=== PATIENT | male | born 1970 | race Caucasian/White ===

== ENCOUNTER 2017-03-18 11:04 | Inpatient (IN) | payer BC, OTHER ==
[2017-03-18] MEDS ORDERED: SODIUM CHLORIDE 0.9% 2,000 ML IV ONE (11:27)
[2017-03-18] MEDS ORDERED: FAMOTIDINE 20 MG/2 ML VIAL IV STA (11:27)
[2017-03-18] MEDS ORDERED: ONDANSETRON 4 MG/2 ML VIAL IVP STA (11:29)
--- NOTE | 2017-03-18 11:35 | ED ---
General Adult HPI - General Chief complaint: Recheck/Abnormal Lab/Rx Stated complaint: Sent by clai is high Time Seen by Provider: 03/18/17 11:17 Source: patient, RN notes reviewed Mode of arrival: ambulatory Limitations: no limitations - History of Present Illness Initial comments: This a 46-year-old male presents emergency Department from primary care physician's office for hyperglycemia, abdominal pain. Patient states for the last 6 days he's had epigastric pain, nausea vomiting. Patient states that he feels that he has sharp pain but also burning sensation in his epigastric. Patient denies any chest pain or shortness breath. Patient denies fever, chills , diarrhea. Patient had increased thirst, nation. Patient states that he does not take any prescription medications. He has no history of diabetes. Patient had A1c's office which was 14 and he had ketones and glucose in his urine. Patient EKG with no acute changes. - Related Data Home Medications Medication Instructions Recorded Confirmed Multivitamins, Thera [Multivitamin 1 tab PO DAILY 03/18/17 03/18/17 (formulary)] Naproxen Sodium [Aleve] 440 mg PO BID 03/18/17 03/18/17 Allergies Allergy/AdvReac Type Severity Reaction Status Date / Time No Known Allergies Allergy Verified 03/18/17 11:48 Review of Systems ROS Statement: Those systems with pertinent positive or pertinent negative responses have been documented in the HPI. ROS Other: All systems not noted in ROS Statement are negative. Past Medical History Past Medical History: No Reported History History of Any Multi-Drug Resistant Organisms: None Reported Past Surgical History: Orthopedic Surgery Additional Past Surgical History / Comment(s): neck Past Psychological History: No Psychological Hx Reported Smoking Status: Current every day smoker Past Alcohol Use History: None Reported Past Drug Use History: None Reported General Exam Limitations: no limitations General appearance: alert, in no apparent distress ENT exam: Present: mucous membranes moist. Absent: normal exam, normal oropharynx (Edentulous) Neck exam: Present: normal inspection, full ROM. Absent: tenderness, meningismus, lymphadenopathy Respiratory exam: Present: normal lung sounds bilaterally. Absent: respiratory distress, wheezes, rales, rhonchi, stridor Cardiovascular Exam: Present: normal rhythm, tachycardia, normal heart sounds. Absent: systolic murmur, diastolic murmur, rubs, gallop, clicks GI/Abdominal exam: Present: soft, tenderness (Minimal epigastric), normal bowel sounds. Absent: distended, guarding, rebound, rigid Back exam: Absent: CVA tenderness (R), CVA tenderness (L) Neurological exam: Present: alert, oriented X3, CN II-XII intact Course Vital Signs 03/18/17 03/18/17 11:11 12:16 Temperature 97.6 F 98.5 F Pulse Rate 111 H 101 H Respiratory 24 18 Rate Blood Pressure 144/88 154/92 O2 Sat by Pulse 98 96 Oximetry Medical Decision Making - Lab Data Result diagrams: 03/18/17 11:29 03/18/17 11:29 Lab Results 03/18/17 03/18/17 03/18/17 Range/Units 11:29 11:29 11:43 WBC 19.9 H (3.8-10.6) k/uL RBC 5.28 (4.30-5.90) m/uL Hgb 16.1 (13.0-17.5) gm/dL Hct 50.7 (39.0-53.0) % MCV 95.9 (80.0-100.0) fL MCH 30.4 (25.0-35.0) pg MCHC 31.7 (31.0-37.0) g/dL RDW 13.1 (11.5-15.5) % Plt Count 259 (150-450) k/uL Neutrophils % 86 % Lymphocytes % 8 % Monocytes % 4 % Eosinophils % 1 % Basophils % 0 % Neutrophils # 17.1 H (1.3-7.7) k/uL Lymphocytes # 1.6 (1.0-4.8) k/uL Monocytes # 0.8 (0-1.0) k/uL Eosinophils # 0.1 (0-0.7) k/uL Basophils # 0.1 (0-0.2) k/uL Sodium 124 L (137-145) mmol/L Potassium 4.6 (3.5-5.1) mmol/L Chloride 85 L (98-107) mmol/L Carbon Dioxide 14 L (22-30) mmol/L Anion Gap 25 mmol/L BUN 29 H (9-20) mg/dL Creatinine 1.08 (0.66-1.25) mg/dL Est GFR (MDRD) Af Amer >60 (>60 ml/min/1.73 sqM) Est GFR (MDRD) Non-Af >60 (>60 ml/min/1.73 sqM) Glucose 1098 H* (74-99) mg/dL POC Glucose (mg/dL) >600 H (75-99) mg/dL POC Glu Spanish Language Lecturer ID Kirsty Rice Calcium 8.8 (8.4-10.2) mg/dL Total Bilirubin 0.9 (0.2-1.3) mg/dL AST 23 (17-59) U/L ALT 89 H (21-72) U/L Alkaline Phosphatase 150 H (38-126) U/L Total Protein 7.0 (6.3-8.2) g/dL Albumin 4.5 (3.5-5.0) g/dL Amylase 53 (30-110) U/L Lipase 243 (23-300) U/L Urine Color Urine Appearance (Clear) Urine pH (5.0-8.0) Ur Specific Staley (1.001-1.035) Urine Protein (Negative) Urine Glucose (UA) (Negative) Urine Blood (Negative) Urine Nitrite (Negative) Urine Bilirubin (Negative) Urine Urobilinogen (<2.0) mg/dL Ur Leukocyte Esterase (Negative) 03/18/17 Range/Units 11:57 WBC (3.8-10.6) k/uL RBC (4.30-5.90) m/uL Hgb (13.0-17.5) gm/dL Hct (39.0-53.0) % MCV (80.0-100.0) fL MCH (25.0-35.0) pg MCHC (31.0-37.0) g/dL RDW (11.5-15.5) % Plt Count (150-450) k/uL Neutrophils % % Lymphocytes % % Monocytes % % Eosinophils % % Basophils % % Neutrophils # (1.3-7.7) k/uL Lymphocytes # (1.0-4.8) k/uL Monocytes # (0-1.0) k/uL Eosinophils # (0-0.7) k/uL Basophils # (0-0.2) k/uL Sodium (137-145) mmol/L Potassium (3.5-5.1) mmol/L Chloride (98-107) mmol/L Carbon Dioxide (22-30) mmol/L Anion Gap mmol/L BUN (9-20) mg/dL Creatinine (0.66-1.25) mg/dL Est GFR (MDRD) Af Amer (>60 ml/min/1.73 sqM) Est GFR (MDRD) Non-Af (>60 ml/min/1.73 sqM) Glucose (74-99) mg/dL POC Glucose (mg/dL) (75-99) mg/dL POC Glu Spanish Language Lecturer ID Calcium (8.4-10.2) mg/dL Total Bilirubin (0.2-1.3) mg/dL AST (17-59) U/L ALT (21-72) U/L Alkaline Phosphatase (38-126) U/L Total Protein (6.3-8.2) g/dL Albumin (3.5-5.0) g/dL Amylase (30-110) U/L Lipase (23-300) U/L Urine Color Colorless Urine Appearance Clear (Clear) Urine pH 5.0 (5.0-8.0) Ur Specific Staley 1.022 (1.001-1.035) Urine Protein Negative (Negative) Urine Glucose (UA) 4+ H (Negative) Urine Blood Negative (Negative) Urine Nitrite Negative (Negative) Urine Bilirubin Negative (Negative) Urine Urobilinogen <2.0 (<2.0) mg/dL Ur Leukocyte Esterase Negative (Negative) Disposition Clinical Impression: DKA (diabetic ketoacidoses), Diabetes mellitus, new onset Disposition: ADMITTED IP TO THIS [facility] Condition: Fair
[2017-03-18 11:39] LABS: Basophils # (A) 0.1 k/uL (0-0.2); Basophils % (A) 0 %; CH 30.4; CHCM 31.9; Eosinophils # (A) 0.1 k/uL (0-0.7); Eosinophils % (A) 1 %; HCT 50.7 % (39.0-53.0); HDW 2.65; HGB 16.1 gm/dL (13.0-17.5); Luc # (Auto) 0.17; Luc % (Auto) 1; Lymphocytes # (A) 1.6 k/uL (1.0-4.8); Lymphocytes % (A) 8 %; MCH 30.4 pg (25.0-35.0); MCHC 31.7 g/dL (31.0-37.0); MCV 95.9 fL (80.0-100.0); Mean Platelet Volume 9.3; Monocytes # (A) 0.8 k/uL (0-1.0); Monocytes % (A) 4 %; Neutrophils # (A) 17.1 k/uL (1.3-7.7); Neutrophils % (A) 86 %; RBC 5.28 m/uL (4.30-5.90); RDW 13.1 % (11.5-15.5); WBC 19.9 k/uL (3.8-10.6); WBC (Perox) 18.76
[2017-03-18 11:45] LABS: Glucose,Whole Blood >600 mg/dL (75-99)
[2017-03-18 12:00] LABS: ALT 89 U/L (21-72); AST 23 U/L (17-59); Alkaline Phosphatase 150 U/L (38-126); Amylase 53 U/L (30-110); Anion Gap 25 mmol/L; Blood Urea Nitrogen 29 mg/dL (9-20); Calcium 8.8 mg/dL (8.4-10.2); Carbon Dioxide 14 mmol/L (22-30); Chloride 85 mmol/L (98-107); Non-African American GFR(MDRD) >60 (>60 ml/min/1.73 sqM); Potassium 4.6 mmol/L (3.5-5.1); Sodium 124 mmol/L (137-145); Total Bilirubin 0.9 mg/dL (0.2-1.3)
[2017-03-18 12:06] LABS: Appearance,Urine Clear (Clear); Bilirubin,Urine Negative (Negative); Glucose,Urine (UA) 4+ (Negative); Leukocyte Esterase,Urine Negative (Negative); Nitrite,Urine Negative (Negative); Protein,Urine Negative (Negative); Specific Gravity,Urine 1.022 (1.001-1.035); UA Billing (MACRO vs. MICRO) CHEM; Urobilinogen,Urine <2.0 mg/dL (<2.0)
[2017-03-18 12:10] LABS: Glucose 1098 mg/dL (74-99)
[2017-03-18] MEDS ORDERED: MAG HYDROX/AL HYDROX/SIMETH 30 ML, HYOSCYAMINE ELIXIR 10 ML, CIMETIDINE HCL 300 MG PO STA ×3 (12:26)
[2017-03-18] MEDS: INSULIN REGULAR 100 UNIT in SODIUM CHLORIDE 0.9% 100 ML IV SCH ×2 (12:48→23:37)
[2017-03-18 12:53] LABS: Ketones,Urine 2+ (Negative)
[2017-03-18] MEDS: SODIUM CHLORIDE 0.9% 1,000 ML IV SCH ×2 (12:54→20:42)
[2017-03-18 13:50] LABS: Glucose,Whole Blood 593 mg/dL (75-99)
[2017-03-18] MEDS: ONDANSETRON 4 MG/2 ML VIAL IVP PRN ×2 (14:26→19:05)
[2017-03-18] MEDS ORDERED: KETOROLAC 30 MG/ML 1 ML VIAL IVP STA (14:37)
[2017-03-18 14:49] LABS: Glucose,Whole Blood 484 mg/dL (75-99)
[2017-03-18 15:56] LABS: Glucose,Whole Blood 422 mg/dL (75-99)
[2017-03-18 15:57] LABS: Anion Gap 15 mmol/L; Blood Urea Nitrogen 22 mg/dL (9-20); Carbon Dioxide 18 mmol/L (22-30); Chloride 102 mmol/L (98-107); Non-African American GFR(MDRD) >60 (>60 ml/min/1.73 sqM); Phosphorous 3.8 mg/dL (2.5-4.5); Potassium 3.4 mmol/L (3.5-5.1); Sodium 135 mmol/L (137-145)
[2017-03-18 16:07] LABS: Glucose 460 mg/dL (74-99)
[2017-03-18] MEDS ORDERED: POTASSIUM CHLORIDE ER 20 MEQ TAB.ER PO STA (16:39)
[2017-03-18] MEDS ORDERED: NICOTINE 21MG/24HR PATCH TRANSDERM STA (16:39)
[2017-03-18] MEDS ORDERED: NAPROXEN 250 MG TAB PO PRN (16:40)
[2017-03-18 17:17] LABS: Glucose,Whole Blood 302 mg/dL (75-99)
[2017-03-18 18:25] LABS: Glucose,Whole Blood 240 mg/dL (75-99)
[2017-03-18] MEDS: D5-0.45% NACL WITH KCL 20MEQ/L 1,000 ML IV SCH ×2 (19:02→23:45)
[2017-03-18 19:18] LABS: Glucose,Whole Blood 234 mg/dL (75-99)
[2017-03-18 20:07] LABS: Glucose,Whole Blood 317 mg/dL (75-99)
[2017-03-18 20:08] LABS: Anion Gap 11 mmol/L; Blood Urea Nitrogen 18 mg/dL (9-20); Carbon Dioxide 19 mmol/L (22-30); Chloride 106 mmol/L (98-107); Glucose 297 mg/dL (74-99); Non-African American GFR(MDRD) >60 (>60 ml/min/1.73 sqM); Potassium 3.5 mmol/L (3.5-5.1); Sodium 136 mmol/L (137-145)
[2017-03-18] MEDS: ENOXAPARIN 40 MG/0.4 ML SYRINGE SQ SCH (20:46)
[2017-03-18] MEDS: CALCIUM CARBONATE LIQUID 500 MG/5 ML CUP PO SCH (20:46)
[2017-03-18] MEDS: PANTOPRAZOLE 40 MG TABLET PO SCH (20:46)
[2017-03-18] MEDS: MELATONIN 3 MG TABLET PO SCH (20:47)
[2017-03-18] MEDS ORDERED: LISINOPRIL-HCTZ 10-12.5 MG 1 EACH TAB PO SCH (21:00)
[2017-03-18 21:08] LABS: Glucose,Whole Blood 304 mg/dL (75-99)
[2017-03-18 22:06] LABS: Glucose,Whole Blood 313 mg/dL (75-99)
[2017-03-18 23:11] LABS: Glucose,Whole Blood 281 mg/dL (75-99)
[2017-03-19 00:05] LABS: Glucose,Whole Blood 267 mg/dL (75-99)
[2017-03-19 01:01] LABS: Glucose,Whole Blood 243 mg/dL (75-99)
[2017-03-19] MEDS: ONDANSETRON 4 MG/2 ML VIAL IVP PRN ×3 (01:15→16:34)
[2017-03-19 02:04] LABS: Glucose,Whole Blood 194 mg/dL (75-99)
[2017-03-19 03:06] LABS: Glucose,Whole Blood 160 mg/dL (75-99)
[2017-03-19 04:11] LABS: Glucose,Whole Blood 112 mg/dL (75-99)
[2017-03-19 05:00] LABS: Glucose,Whole Blood 93 mg/dL (75-99)
[2017-03-19 06:07] LABS: Glucose,Whole Blood 144 mg/dL (75-99)
[2017-03-19 06:11] LABS: ALT 56 U/L (21-72); AST 17 U/L (17-59); Alkaline Phosphatase 86 U/L (38-126); Anion Gap 9 mmol/L; Blood Urea Nitrogen 21 mg/dL (9-20); Calcium 8.5 mg/dL (8.4-10.2); Carbon Dioxide 19 mmol/L (22-30); Chloride 108 mmol/L (98-107); Cholesterol 188 mg/dL (<200); Glucose 131 mg/dL (74-99); HDL Cholesterol 26 mg/dL (40-60); Non-African American GFR(MDRD) 53 (>60 ml/min/1.73 sqM); Potassium 3.4 mmol/L (3.5-5.1); Sodium 136 mmol/L (137-145); Total Bilirubin 0.5 mg/dL (0.2-1.3); Total Protein 5.3 g/dL (6.3-8.2); Triglycerides 439 mg/dL (<150)
[2017-03-19 06:14] LABS: Basophils % (A) 0 %; CH 31.6; Eosinophils # (A) 0.2 k/uL (0-0.7); Eosinophils % (A) 2 %; HCT 36.2 % (39.0-53.0); Luc # (Auto) 0.18; Luc % (Auto) 2; Lymphocytes # (A) 1.2 k/uL (1.0-4.8); Lymphocytes % (A) 12 %; MCH 30.4 pg (25.0-35.0); MCHC 34.4 g/dL (31.0-37.0); Mean Platelet Volume 8.5; Monocytes # (A) 0.6 k/uL (0-1.0); Monocytes % (A) 6 %; Neutrophils # (A) 8.2 k/uL (1.3-7.7); Neutrophils % (A) 79 %; RDW 12.9 % (11.5-15.5); WBC 10.4 k/uL (3.8-10.6); WBC (Perox) 9.56
[2017-03-19 06:17] LABS: HGB 12.4 gm/dL (13.0-17.5); MCV 88.2 fL (80.0-100.0)
[2017-03-19] MEDS ORDERED: Potassium Replacement Protocol 1 EACH MISC MISCELLANE PRN (06:49)
[2017-03-19] MEDS ORDERED: INSULIN NPH 300 UNIT/3 ML VIAL SQ ONE (06:52)
[2017-03-19 07:01] LABS: Glucose,Whole Blood 220 mg/dL (75-99)
[2017-03-19] MEDS: D5-0.45% NACL WITH KCL 20MEQ/L 1,000 ML IV SCH (07:01)
--- NOTE | 2017-03-19 07:06 | HP ---
DATE OF ADMISSION: 03/18/2017 PRESENTING COMPLAINT: Weak, tired. HISTORY OF PRESENTING COMPLAINT: This is a pleasant 46-year-old patient of Dr. Ndiaye. The patient had history of one episode of grand mal seizure several years ago, history of multiple closed head injuries. Patient has trouble sleeping, also gets a lot of heartburn. The patient has been taking a lot of naproxen for chronic neck pain presented with increased frequency of urination, polydipsia, polyuria, found to have a sugar greater than 1000 in the ER and positive serum acetone, started on insulin drip. No prior history of diabetes. The patient is a smoker. Feels weak, tired, rundown, exhausted. REVIEW OF SYSTEMS: CONSTITUTIONAL: Weak and tired. HEENT: None. RESPIRATORY: None. CARDIOVASCULAR: None. GASTROINTESTINAL: Heartburn and epigastric discomfort. GENITOURINARY: None. MUSCULOSKELETAL: Pain in the neck and lower back. DERMATOLOGICAL: None. HEMATOLOGICAL: None. LYMPHATIC: None. PSYCHIATRY: None. NEUROLOGICAL: None. PAST HISTORY: Grand mal seizure x1, closed head injury x3, chronic insomnia, chronic neck pain, some trouble focusing through the right eye. PAST SURGICAL HISTORY: Cervical plate, left hand 3 partially amputated fingers, left knee arthroscopic surgery due to crush injury, right rotator cuff repair. SOCIAL HISTORY: for 22 years. Smokes a pack a day for over 30 years. 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 Drinks alcohol rarely. FAMILY HISTORY: Both maternal grandparents had diabetes. HOME MEDICATIONS: 1. Naproxen 440 mg p.o. b.i.d. 2. Multivitamin 1 tablet p.o. daily. ALLERGIES: None. On examination, temperature 97.4, pulse 110, respiration 16, blood pressure 155/91, pulse ox 99% on room air. GENERAL APPEARANCE: Average built, lying in bed, tired appearing. EYES: Pupils equal. Conjunctivae normal. HEENT: Oral cavity dry mucous membrane. NECK: JVD not raised. Mass not palpable. RESPIRATORY: Effort normal. Lungs are clear. CARDIOVASCULAR: First and second sounds normal. No edema. ABDOMEN: Soft, nontender. Liver and spleen not palpable. LYMPHATIC: No lymph nodes palpable in the neck or axillae. PSYCHIATRY: Alert and oriented x3. Mood and affect normal. NEUROLOGICAL: Pupils equal. Cranial nerves grossly intact. Power and sensation grossly intact. INVESTIGATIONS: White count 19.9, hemoglobin 16.1, platelets 259. Sodium 124, potassium 4.6. BUN 29, creatinine 1.08. Glucose 1098. Serum acetone positive. UA positive for glucose 4+ and ketones 2+. ASSESSMENT: 1. New-onset diabetic ketoacidosis. 2. Hyponatremia, likely pseudo from high sugar. 3. Leukocytosis because of diabetic ketoacidosis. 4. Chronic nicotine dependence. Patient is a smoker. 5. Acute and chronic gastritis from the use of NSAIDs. 6. 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 7. Chronic insomnia, multifactorial. 8. Essential hypertension, uncontrolled on presentation. PLAN: At this point, patient was put on insulin drip. Will check patient's glycosylated hemoglobin. For risk factor modification, I told the patient not smoke. Given a nicotine patch. We will check a lipid profile and for the high blood pressure start the patient on lisinopril hydrochlorothiazide. Will give Lovenox for DVT prophylaxis and IV fluids. Repeat labs in the morning. Patient was counseled extensively. Patient states he does not have money for prescriptions and will try to use Humulin 70/30, which is more financially reasonable.
[2017-03-19] MEDS: PANTOPRAZOLE 40 MG TABLET PO SCH (08:10)
[2017-03-19] MEDS: POTASSIUM CHLORIDE ER 20 MEQ TAB.ER PO SCH ×2 (08:10→09:31)
[2017-03-19] MEDS: CALCIUM CARBONATE LIQUID 500 MG/5 ML CUP PO SCH ×3 (08:10→20:45)
[2017-03-19] MEDS: INSULIN LISPRO (humaLOG) 300 UNIT/3 ML VIAL SQ SCH ×2 (08:35→12:32)
[2017-03-19] MEDS ORDERED: PANTOPRAZOLE 40 MG/10 ML VIAL IV SCH (09:00)
[2017-03-19] MEDS: ENOXAPARIN 40 MG/0.4 ML SYRINGE SQ SCH (09:31)
[2017-03-19] MEDS: NICOTINE 21MG/24HR PATCH TRANSDERM SCH (09:31)
[2017-03-19] MEDS ORDERED: ALPRAZolam 0.25 MG TAB PO STA (10:04)
[2017-03-19 11:40] LABS: Glucose,Whole Blood 457 mg/dL (75-99)
[2017-03-19 12:23] LABS: Hemoglobin A1C 14.1 % (4.2-6.1)
--- NOTE | 2017-03-19 12:31 | PN ---
DATE OF SERVICE: 03/19/2017 PRESENTING COMPLAINT: Weak and tired. INTERVAL HISTORY: This is a 46-year-old gentleman who presented to the emergency department on 03/18/2017 with increased frequency of urination, polydipsia, polyuria and was found to have blood glucose greater than 1000 IN the emergency department. Additionally, he had positive serum acetone, started on an insulin drip at that time. No history of diabetes. Patient is a current smoker. Today patient feels overwhelmed, tired, weak, but not to the degree that he felt those feelings yesterday. Review of systems done for constitutional, cardiovascular, GI, pulmonary with relevant findings as above. CURRENT MEDICATIONS: Lovenox, Lantus, Humalog, melatonin, nicotine patch, Protonix. PHYSICAL EXAM: VITAL SIGNS: Temperature 98.0, pulse 92, respirations 17, blood pressure 92/53, oxygen saturation 98% on room air GENERAL APPEARANCE: Patient is lying in bed, states he feels stressed out, overwhelmed due to all the new information he has received over the past 12 hours. Concerns regarding use of insulin. Patient states he has a fear of needles. Reassurance provided from provider regarding these concerns. EYES: Pupils equal. Conjunctivae normal. NECK: JVD not raised. Mass not palpable. Lung sounds clear to auscultation throughout. RESPIRATORY: Effort normal. Unlabored. CARDIOVASCULAR: S1, S2 normal. No edema noted. ABDOMEN: Soft, nontender. Liver and spleen not palpable. PSYCHIATRIC: Alert and oriented x3. Mood and affect are normal. INVESTIGATIONS: Hemoglobin 12.4, white blood cell count 10.4, platelets 155. Sodium 136, potassium 3.4, chloride 108, BUN 21, creatinine 1.43. Albumin 3.1. Triglycerides 439. ASSESSMENT: 1. New onset diabetic ketoacidosis. 2. Hyponatremia likely pseudo from elevated sugars. 3. Leukocytosis because of diabetic ketoacidosis. 4. Chronic nicotine dependence. Patient is a current smoker. 5. Acute on chronic gastritis from the use of NSAIDs. 6. 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 7. Chronic insomnia, multifactorial. 8. Essential hypertension, uncontrolled on presentation. PLAN: Insulin drip has been converted to subcutaneous insulin this morning. Will continue to check patient's lab values. Also will follow up on patient's glycosylated hemoglobin. Patient was again counseled on cigarette smoking and the need for him to quit. Patient is provided a nicotine patch. Lisinopril hydrochlorothiazide was initiated on 03/18/2017; however, patient's blood pressure dipped down into the 60s overnight; therefore will re-evaluate antihypertensive that are more amenable to patient's current conditions. Lovenox for DVT prophylaxis. IV fluids continue to be given. Case management and diabetes education have been in to see the patient and are going to provide education and counseling to patient and patient's his to ensure compliance.
[2017-03-19] MEDS ORDERED: INSULIN LISPRO (humaLOG) 300 UNIT/3 ML VIAL SQ SCH (13:00)
[2017-03-19] MEDS ORDERED: INSULIN REGULAR 100 UNIT in SODIUM CHLORIDE 0.9% 100 ML IV SCH (14:15)
[2017-03-19 15:35] LABS: Glucose,Whole Blood 350 mg/dL (75-99)
--- NOTE | 2017-03-19 15:54 | XR ---
EXAMINATION TYPE: XR facial bones 3 views complete, XR mandible 5 views complete DATE OF EXAM: 03/19/2017 3:17 PM COMPARISON: NONE HISTORY: 46-year-old male evaluated for tooth abscess FINDINGS: Nasal septum appears midline. Orbits appear relatively symmetric. No significant opacification seen w ithin the paranasal sinuses. There are large dental caries that involve left-sided mandibular and maxillary molars/premolars. A fe w of the teeth are markedly eroded with only the roots remaining. There may be periapical lucency/abscess involving 2 of these mandibular teeth, refer to the lateral v iew of the mandible. IMPRESSION: Large dental caries involving left-sided maxillary and mandibular molars and premolars. 2 of the lamont ibular teeth have findings suggesting periapical lucency/abscesses. Consider orthopantogram to better delineate these teeth as clinically indicated.
[2017-03-19] MEDS: CLINDAMYCIN 300 MG in DEXTROSE 5% IN WATER 50 ML IVPB SCH ×4 (16:31→20:45)
[2017-03-19 17:35] LABS: Glucose,Whole Blood 216 mg/dL (75-99)
[2017-03-19 19:09] LABS: Glucose,Whole Blood 331 mg/dL (75-99)
[2017-03-19 20:19] LABS: Glucose,Whole Blood 310 mg/dL (75-99)
[2017-03-19] MEDS: INSULIN NPH/REG INSULIN 70/30 300 UNIT/3 ML VIAL SQ SCH (20:27)
[2017-03-19] MEDS: MELATONIN 3 MG TABLET PO SCH (20:45)
[2017-03-19] MEDS: ATORVASTATIN 40 MG TAB PO SCH (20:45)
[2017-03-19] MEDS: ACETAMINOPHEN TAB 325 MG TAB PO PRN (20:45)
[2017-03-19] MEDS ORDERED: INSULIN GLARGINE 100 UNIT/ML 10 ML VIAL SQ SCH (21:00)
[2017-03-19 21:34] LABS: Glucose,Whole Blood 301 mg/dL (75-99)
--- NOTE | 2017-03-19 22:29 | PN ---
DATE OF SERVICE: 03/19/2017 ATTENDING NOTE: This patient was seen and examined by me today. I agree with the note by my nurse practitioner Ms. Escoto. Any changes as below. This patient was admitted with DKA. Sugars are still running high this morning. I told him to continue with IV insulin drip. Patient also noticed some swelling of the left side of the face which has been coming on slowly. He thinks this is an abscess. Because of insurance reasons, he had not gone to see a doctor. Patient's is at the bedside. Review of systems done for constitutional, cardiovascular, GI, pulmonary; relevant findings as above. On examination, temperature 97.1, pulse 93, respiration 18, blood pressure 110/55. There is swelling over the left maxilla, some tenderness. INVESTIGATIONS: Accu-Cheks are noted. White count 10.4. Potassium 3.4. BUN 21, creatinine 1.43. Patient's triglycerides are 439. ASSESSMENT: 1. Diabetic ketoacidosis, slow to respond. 2. Hyponatremia, likely pseudo from elevated sugars, improving. 3. Chronic nicotine dependence. Patient is a current smoker. 4. Acute on chronic gastritis from NSAIDs. 5. Chronic insomnia, multifactorial. 6. Essential hypertension, uncontrolled on presentation. 7. Strongly suspect upper tooth caries with abscess, maybe involving the maxillary sinus. PLAN: Patient will continue with insulin drip for right now. This evening we will change the patient to insulin 70/30, starting with 16 units with breakfast and supper and 6 to 8 units with lunch. Patient will be also put on IV clindamycin. Will get an x-ray of the facial bones and the maxilla and consult Orofacial Maxillary bindery leadperson. Talked to the patient and his at the bedside. Counseled yet again against smoking. Repeat electrolytes in the morning.
[2017-03-20] MEDS: ONDANSETRON 4 MG/2 ML VIAL IVP PRN ×3 (00:06→17:25)
[2017-03-20] MEDS: CLINDAMYCIN 300 MG in DEXTROSE 5% IN WATER 50 ML IVPB SCH ×6 (03:48→15:32)
[2017-03-20 06:04] LABS: Glucose,Whole Blood 242 mg/dL (75-99)
[2017-03-20 06:15] LABS: Basophils # (A) 0.1 k/uL (0-0.2); Basophils % (A) 1 %; CH 30.7; CHCM 34.5; Eosinophils # (A) 0.2 k/uL (0-0.7); Eosinophils % (A) 2 %; HCT 38.3 % (39.0-53.0); HDW 2.57; HGB 13.1 gm/dL (13.0-17.5); Luc # (Auto) 0.25; Luc % (Auto) 2; Lymphocytes % (A) 19 %; MCH 30.4 pg (25.0-35.0); MCHC 34.2 g/dL (31.0-37.0); MCV 89.1 fL (80.0-100.0); Mean Platelet Volume 8.6; Monocytes # (A) 0.6 k/uL (0-1.0); Monocytes % (A) 6 %; Neutrophils # (A) 7.6 k/uL (1.3-7.7); Neutrophils % (A) 71 %; WBC 10.7 k/uL (3.8-10.6); WBC (Perox) 11.67
[2017-03-20 06:29] LABS: Anion Gap 13 mmol/L; Blood Urea Nitrogen 13 mg/dL (9-20); Calcium 8.8 mg/dL (8.4-10.2); Carbon Dioxide 22 mmol/L (22-30); Chloride 103 mmol/L (98-107); Glucose 267 mg/dL (74-99); Non-African American GFR(MDRD) >60 (>60 ml/min/1.73 sqM); Potassium 3.7 mmol/L (3.5-5.1); Sodium 138 mmol/L (137-145)
[2017-03-20] MEDS: ACETAMINOPHEN TAB 325 MG TAB PO PRN (06:50)
[2017-03-20] MEDS: PANTOPRAZOLE 40 MG TABLET PO SCH (06:50)
[2017-03-20] MEDS: CALCIUM CARBONATE LIQUID 500 MG/5 ML CUP PO SCH ×3 (06:50→17:20)
[2017-03-20] MEDS: SODIUM CHLORIDE 0.9% 1,000 ML IV SCH ×3 (06:52→15:34)
[2017-03-20] MEDS: INSULIN NPH/REG INSULIN 70/30 300 UNIT/3 ML VIAL SQ SCH (07:15)
[2017-03-20] MEDS: ENOXAPARIN 40 MG/0.4 ML SYRINGE SQ SCH (09:35)
[2017-03-20] MEDS: ATORVASTATIN 40 MG TAB PO SCH (09:35)
[2017-03-20] MEDS: NICOTINE 21MG/24HR PATCH TRANSDERM SCH (09:38)
[2017-03-20] MEDS: HYDROcodone/APAP 5-325MG 1 EACH TAB PO PRN ×2 (09:41→17:39)
--- NOTE | 2017-03-20 10:29 | PN ---
DATE OF SERVICE: 03/20/2017 PRESENTING COMPLAINT: Weak and tired. INTERVAL HISTORY: This 46-year-old gentleman who presented to the emergency department on 03/18/2017 with increased frequency of urination, polydipsia, polyuria, was found to have a blood glucose greater than 1000 in the emergency department. Additionally he had positive serum acetone started on an insulin drip at that time. No history of diabetes. Current smoker. Today patient feels some better. Continues to feel overwhelmed. Complaining of left-sided cheek and jaw and tooth pain Review of systems done for constitutional, cardiovascular, GI, pulmonary with relevant findings as above. CURRENT MEDICATIONS: Lovenox, Lantus, Humalog, melatonin, nicotine patch, Protonix. PHYSICAL EXAM: VITAL SIGNS: Temperature 96.6, pulse 96, respirations 18, blood pressure 128/63, oxygen saturation 96% on room air. GENERAL APPEARANCE: Patient is lying in bed, complaints regarding left jaw and tooth pain. Continues to feel overwhelmed regarding all new information for current condition. Continues to have concerns regarding use of insulin. Reassurance once again provided. EYES: Pupils equal. Conjunctivae normal. NECK: JVD not raised. Mass not palpable. LUNGS: Clear to auscultation. Respiratory effort normal. Unlabored. CARDIOVASCULAR: S1, S2 normal. No edema noted. ABDOMEN: Soft, nontender. Liver and spleen not palpable. PSYCHIATRIC: Alert and oriented x3. Mood and affect are normal. HEENT: Patient has left mandibular maxillary pain related to multiple tooth abscesses, tender to palpation, left mandibular and maxillary area notably swollen. INVESTIGATIONS: White blood cell count 10.7, hemoglobin 13.1, platelet count 148. Sodium 138, BUN 13, creatinine 0.70. Facial x-ray dated 03/19/2017 large dental caries involving left-sided maxillary and mandibular molars and premolars, 2 mandibular teeth have findings suggestive periapical lucency and abscesses. ASSESSMENT: 1. Diabetic ketoacidosis , slow to respond. 2. Hyponatremia likely pseudo from elevated sugars, improving. 3. Chronic nicotine dependence. Patient is a current smoker. 4. Acute on chronic gastritis from NSAIDs. 5. Chronic insomnia, multifactorial. 6. Essential hypertension, uncontrolled on presentation. 7. Left mandibular and maxillary pain. X-rays confirm multiple dental caries with abscesses. PLAN: Patient will can continue with insulin 70/30 starting with 16 units at breakfast and supper and 6 to 8 units with lunch. Patient will be also put on clindamycin IV. X-rays confirm dental caries with abscesses. Oral maxillofacial surgery has seen the patient and will take the patient for surgical intervention on 03/20/2017. Patient to being made n.p.o. after midnight. Patient counseled this morning regarding smoking and monitoring closely his blood sugars. Explanation was provided as to why blood sugar is difficult to control at this time. However, patient did not seem to understand the concept of infectious process and its impact on his diabetes control. Will attempt to explain at a later time. Patient was seen and examined by RARE/ENDANGERED SPECIES SPECIALIST, Kayla Escoto and all elements of the case was discussed with attending, Dr. Stephens.
[2017-03-20 12:01] LABS: Glucose,Whole Blood 447 mg/dL (75-99)
[2017-03-20 12:05] VITALS: BMI 29.2
[2017-03-20] MEDS ORDERED: INSULIN NPH/REG INSULIN 70/30 300 UNIT/3 ML VIAL SQ SCH (12:30)
[2017-03-20] MEDS ORDERED: INSULIN REGULAR BOLUS (FROM DRIP BAG) IV ONE (13:00)
[2017-03-20] MEDS: INSULIN REGULAR 100 UNIT in SODIUM CHLORIDE 0.9% 100 ML IV SCH ×2 (13:26→22:45)
[2017-03-20] MEDS: KETOROLAC 30 MG/ML 1 ML VIAL IVP PRN ×2 (13:37→20:01)
[2017-03-20] MEDS: INSULIN LISPRO (humaLOG) 300 UNIT/3 ML VIAL SQ SCH ×2 (13:44→17:20)
[2017-03-20 14:33] LABS: Glucose,Whole Blood 397 mg/dL (75-99)
[2017-03-20 15:52] LABS: Glucose,Whole Blood 240 mg/dL (75-99)
[2017-03-20 17:03] LABS: Glucose,Whole Blood 294 mg/dL (75-99)
[2017-03-20] MEDS: CLINDAMYCIN 600 MG in DEXTROSE 5% IN WATER 50 ML IVPB SCH ×2 (18:13)
[2017-03-20 18:35] LABS: Glucose,Whole Blood 237 mg/dL (75-99)
[2017-03-20] MEDS ORDERED: MIDAZOLAM 2 MG/2 ML VIAL IV PRN (19:42)
[2017-03-20] MEDS: MELATONIN 3 MG TABLET PO SCH (20:04)
[2017-03-20] MEDS: LACTATED RINGERS 1,000 ML IV SCH (20:14)
[2017-03-20 20:32] LABS: Glucose,Whole Blood 184 mg/dL (75-99)
--- NOTE | 2017-03-20 21:19 | PN ---
DATE OF SERVICE: 03/20/2017 ATTENDING NOTE: This patient was seen and examined by me earlier today, admitted with DKA. Patient has dental abscess in the upper jaw upper jaw, due to go for surgery. Sugars are running again high. On examination, left maxillary tenderness. LUNGS: Slightly decreased breath sounds. CARDIOVASCULAR: First and second sounds normal. White count 10.7. Potassium 3.7. Accu-Cheks are noted. ASSESSMENT: 1. Diabetic ketoacidosis, present on admission. 2. Hyponatremia, pseudo from elevated sugars, improved. 3. Acute and chronic gastritis from nonsteroidal anti-inflammatory drugs. 4. Multiple dental and periapical abscess of the upper jaw, present on admission. PLAN: Patient is going to be put back on an insulin drip. It is hoped that once the abscess is taken out, he probably responds better. Clindamycin dose will be increased for right now. Care was discussed with patient and . Follow.
[2017-03-20 22:41] LABS: Glucose,Whole Blood 228 mg/dL (75-99)
[2017-03-21] MEDS: HYDROcodone/APAP 5-325MG 1 EACH TAB PO PRN ×3 (00:45→20:51)
[2017-03-21 00:48] LABS: Glucose,Whole Blood 240 mg/dL (75-99)
[2017-03-21] MEDS: KETOROLAC 30 MG/ML 1 ML VIAL IVP PRN ×3 (01:07→19:58)
[2017-03-21] MEDS: CLINDAMYCIN 600 MG in DEXTROSE 5% IN WATER 50 ML IVPB SCH ×10 (01:07→23:45)
[2017-03-21 02:44] LABS: Glucose,Whole Blood 257 mg/dL (75-99)
[2017-03-21] MEDS: SODIUM CHLORIDE 0.9% 1,000 ML IV SCH ×3 (04:07→23:44)
[2017-03-21 04:45] LABS: Glucose,Whole Blood 182 mg/dL (75-99)
[2017-03-21] MEDS: CALCIUM CARBONATE LIQUID 500 MG/5 ML CUP PO SCH ×3 (06:36→18:29)
[2017-03-21] MEDS: PANTOPRAZOLE 40 MG TABLET PO SCH (06:36)
[2017-03-21 06:47] LABS: CH 31.4; CHCM 36.3; HCT 33.6 % (39.0-53.0); HDW 2.75; HGB 11.9 gm/dL (13.0-17.5); MCH 30.6 pg (25.0-35.0); MCHC 35.3 g/dL (31.0-37.0); MCV 86.8 fL (80.0-100.0); Mean Platelet Volume 8.7; RBC 3.87 m/uL (4.30-5.90); RDW 12.7 % (11.5-15.5); WBC 6.7 k/uL (3.8-10.6)
[2017-03-21 06:54] LABS: Glucose,Whole Blood 161 mg/dL (75-99)
[2017-03-21 07:03] LABS: Chloride 105 mmol/L (98-107); Glucose 162 mg/dL (74-99); Potassium 3.1 mmol/L (3.5-5.1)
[2017-03-21 07:04] LABS: Anion Gap 9 mmol/L; Blood Urea Nitrogen 16 mg/dL (9-20); Calcium 8.4 mg/dL (8.4-10.2); Carbon Dioxide 24 mmol/L (22-30); Non-African American GFR(MDRD) >60 (>60 ml/min/1.73 sqM); Sodium 138 mmol/L (137-145)
[2017-03-21 08:37] LABS: Glucose,Whole Blood 199 mg/dL (75-99)
[2017-03-21] MEDS: NICOTINE 21MG/24HR PATCH TRANSDERM SCH (08:45)
[2017-03-21] MEDS: ATORVASTATIN 40 MG TAB PO SCH (08:45)
[2017-03-21] MEDS: ENOXAPARIN 40 MG/0.4 ML SYRINGE SQ SCH (08:46)
[2017-03-21] MEDS: ALPRAZolam 0.5 MG TAB PO PRN (08:53)
[2017-03-21 11:02] LABS: Glucose,Whole Blood 210 mg/dL (75-99)
--- NOTE | 2017-03-21 11:17 | PN ---
DATE OF SERVICE: 03/21/2017 PRESENTING COMPLAINT: Weak and tired. INTERVAL HISTORY: This is a 46-year-old gentleman who presented to the emergency department on 03/18/2017 and was found to have blood glucose greater than 1000 diagnosed with DKA. During this hospital stay, he was found to have multiple tooth abscesses in the upper jaw. Patient is scheduled to go to surgery. Today patient is complaining of anxiety, tooth pain, wanting to eat. General discomfort. Sugars are better controlled today; however, are still a bit labile. Review of systems done for constitutional, cardiovascular, GI, pulmonary with relevant findings as above. CURRENT MEDICATIONS: Lovenox, Lantus, Humalog, melatonin, nicotine patch. Protonix. PHYSICAL EXAM: VITAL SIGNS: Temperature 97.4, pulse 98, respiratory rate 18, blood pressure 130/78, oxygen saturation 94% on room air. GENERAL APPEARANCE: Patient is lying in bed currently, complains of left jaw and cheek pain where the teeth are known to have abscesses. Patient beginning to feel more confident regarding glucose management. EYES: Pupils equal. Conjunctivae normal. NECK: JVD not raised. Mass not palpable. LUNGS: Diminished bases. Respiratory effort normal, unlabored. CARDIOVASCULAR: S1, S2 normal. No edema noted. ABDOMEN: Soft, nontender. Liver and spleen not palpable. PSYCHIATRIC: Alert and oriented x3. Mood and affect are normal. HEENT: The patient's left mandibular axillary pain related to multiple tooth abscesses, tender to palpation. Left mandibular and maxillary areas notably swollen. Patient is scheduled for surgery today at 3 p.m. INVESTIGATIONS: White blood cell count 6.7, hemoglobin 11.9, platelet count 138. Potassium 3.1. Morning blood sugar 162. Patient is scheduled for surgery this afternoon at 3 p.m. ASSESSMENT: 1. Diabetic ketoacidosis, present on admission. 2. Hyponatremia, pseudo from elevated sugars, improved. 3. Acute on chronic gastritis from nonsteroidal anti-inflammatory drugs. 4. Multiple dental and periapical abscesses of the upper jaw, present on admission. 5. Chronic nicotine dependence. Patient is a current smoker. 6. Chronic insomnia, multifactorial. 7. Essential hypertension, uncontrolled on presentation. PLAN: Patient remains on insulin drip and has had improved blood sugar control. We will evaluate today after surgery resuming former insulin schedule of 70/30, starting with 16 units at breakfast and 16 at supper and 6 to 8 units with lunch. Patient responding well to increased dose of clindamycin IV. Patient is scheduled for surgery on the multiple tooth abscesses today at 3 p.m. Will continue to provide diabetes management/education to patient in hopes of readying him for discharge within the next few days. Patient was seen and examined by nurse practitioner, Kayla Escoto, and all elements of the case was discussed with attending, Dr. Stephens.
[2017-03-21] MEDS: HYDROmorphone 1 MG/ML 1 ML SYRINGE IVP PRN ×2 (12:49→17:00)
[2017-03-21 13:22] LABS: Glucose,Whole Blood 242 mg/dL (75-99)
--- NOTE | 2017-03-21 14:05 | P.CNEND ---
History of Present Illness Consult date: 03/21/17 History of present illness: Patient is 46-year-old male who was admitted in the hospital with his blood sugar more than 1000. Patient has history of nausea vomiting abdominal pain. He has history of toothache and mild fever for last 1 week. Patient was seen in primary care physician's office. His blood sugar was high he was referred to the emergency room. Patient was admitted and is being treated for diabetic ketoacidosis. Currently patient is on insulin drip Patient reports improvement in his nausea vomiting and abdominal pain. He has been eating regular meals. Patient has no previous history of diabetes. He does have family history of diabetes. Patient has history of polyuria polydipsia fatigue. Patient has noticed blurry vision for the last 4-6 months. Patient has history of weight loss Review of Systems Constitutional: Denies chills, Denies fever Eyes: denies blurred vision, denies pain Ears, nose, mouth and throat: Denies headache, Denies sore throat Cardiovascular: Denies chest pain, Denies shortness of breath Respiratory: Denies cough Gastrointestinal: Denies abdominal pain, Denies diarrhea, Denies nausea, Denies vomiting Genitourinary: Reports as per HPI Musculoskeletal: Denies myalgias Integumentary: Denies pruritus, Denies rash Neurological: Denies numbness, Denies weakness Psychiatric: Reports difficulty concentrating, Denies anxiety, Denies depression Endocrine: Reports fatigue, Reports high blood sugars Hematologic/Lymphatic: Reports as per HPI Allergic/Immunologic: Reports as per HPI Past Medical History Past Medical History: Pneumonia, Seizure Disorder Additional Past Medical History / Comment(s): Closed head injuries x 3, 2010 one time seizure, chronic insomnia, chronic cervical pain, unable to focus with R eye since , lately has had difficulty focusing with L eye. History of Any Multi-Drug Resistant Organisms: None Reported Past Surgical History: Orthopedic Surgery, Tonsillectomy Additional Past Surgical History / Comment(s): Cervical plate then cage, L hand 3 partially amputated fingers, L knee arthroscopic surgery due to crush injury, R rotator cuff repair. Past Anesthesia/Blood Transfusion Reactions: No Reported Reaction Past Psychological History: No Psychological Hx Reported Additional Psychological History / Comment(s): Pt resides with his spouse of 22 yrs. He is normally independent. Smoking Status: Current every day smoker Past Alcohol Use History: None Reported Additional Past Alcohol Use History / Comment(s): Pt started smoking in 1986 and is over a ppd smoker. Pt will drink alcohol rarely. Past Drug Use History: None Reported - Past Family History Father Family Medical History: No Reported History Additional Family Medical History / Comment(s): Maternal grandparents had diabetes. Mother Family Medical History: No Reported History Additional Family Medical History / Comment(s): Paternal grandparents had diabetes. Medications and Allergies Home Medications Medication Instructions Recorded Confirmed Type Multivitamins, Thera [Multivitamin 1 tab PO DAILY 03/18/17 03/18/17 History (formulary)] Naproxen Sodium [Aleve] 440 mg PO BID 03/18/17 03/18/17 History Allergies Allergy/AdvReac Type Severity Reaction Status Date / Time No Known Allergies Allergy Verified 03/18/17 11:48 Physical Exam Vitals: Vital Signs Temp Pulse Pulse Resp BP Pulse Ox 03/21/17 04:00 69 18 107/64 94 L 03/21/17 00:00 74 18 102/54 96 03/20/17 20:00 97.4 F L 98 98 18 130/78 94 L 03/20/17 15:57 98.4 F 95 18 119/75 95 Intake and Output 03/20/17 03/21/17 03/21/17 22:59 06:59 14:59 Intake Total 818.620 3677.575 Output Total 325 Balance 452.938 4320.575 -325 Intake: Intake, IV Titration 87.742 1358.575 Amount Clindamycin 600 mg In 100 Dextrose 5% in Water 50 ml @ 100 mls/hr IVPB Q6HR BRIAN Rx#:[id number] Insulin Regular 100 unit 87.742 58.575 In Sodium Chloride 0.9% 100 ml @ Titrate IV .Q0M BRIAN Rx#:[id number] Sodium Chloride 0.9% 1, 1200 000 ml @ 100 mls/hr IV . Q10H BRIAN Rx#:[id number] Oral 120 500 Output: Urine 325 Other: Voiding Method Toilet Toilet Toilet # Voids 1 1 Weight 100 kg - Constitutional General appearance: no acute distress - EENT Eyes: EOMI - Neck Neck: no lymphadenopathy - Respiratory Respiratory: bilateral: CTA - Cardiovascular Heart sounds: normal: S1, S2 - Gastrointestinal General gastrointestinal: absent bowel sounds - Neurologic Neurologic: CNII-XII intact - Psychiatric Psychiatric: A&O x's 3, intact judgment & insight Results - Labs Result Diagrams: 03/21/17 06:23 03/21/17 06:23 Abnormal Lab Results - Last 24 Hours (Table) 03/20/17 03/20/17 03/20/17 Range/Units 14:28 15:32 16:33 RBC (4.30-5.90) m/uL Hgb (13.0-17.5) gm/dL Hct (39.0-53.0) % Plt Count (150-450) k/uL Potassium (3.5-5.1) mmol/L Creatinine (0.66-1.25) mg/dL Glucose (74-99) mg/dL POC Glucose (mg/dL) 397 H 240 H 294 H (75-99) mg/dL 03/20/17 03/20/17 03/20/17 Range/Units 18:33 20:31 22:40 RBC (4.30-5.90) m/uL Hgb (13.0-17.5) gm/dL Hct (39.0-53.0) % Plt Count (150-450) k/uL Potassium (3.5-5.1) mmol/L Creatinine (0.66-1.25) mg/dL Glucose (74-99) mg/dL POC Glucose (mg/dL) 237 H 184 H 228 H (75-99) mg/dL 03/21/17 03/21/17 03/21/17 Range/Units 00:28 02:38 04:43 RBC (4.30-5.90) m/uL Hgb (13.0-17.5) gm/dL Hct (39.0-53.0) % Plt Count (150-450) k/uL Potassium (3.5-5.1) mmol/L Creatinine (0.66-1.25) mg/dL Glucose (74-99) mg/dL POC Glucose (mg/dL) 240 H 257 H 182 H (75-99) mg/dL 03/21/17 03/21/17 03/21/17 Range/Units 06:23 06:23 06:35 RBC 3.87 L (4.30-5.90) m/uL Hgb 11.9 L (13.0-17.5) gm/dL Hct 33.6 L (39.0-53.0) % Plt Count 138 L (150-450) k/uL Potassium 3.1 L (3.5-5.1) mmol/L Creatinine 0.56 L (0.66-1.25) mg/dL Glucose 162 H (74-99) mg/dL POC Glucose (mg/dL) 161 H (75-99) mg/dL 03/21/17 03/21/17 03/21/17 Range/Units 08:18 10:42 13:01 RBC (4.30-5.90) m/uL Hgb (13.0-17.5) gm/dL Hct (39.0-53.0) % Plt Count (150-450) k/uL Potassium (3.5-5.1) mmol/L Creatinine (0.66-1.25) mg/dL Glucose (74-99) mg/dL POC Glucose (mg/dL) 199 H 210 H 242 H (75-99) mg/dL Diabetes panel 03/21/17 Range/Units 06:23 Sodium 138 (137-145) mmol/L Potassium 3.1 L (3.5-5.1) mmol/L Chloride 105 (98-107) mmol/L Carbon Dioxide 24 (22-30) mmol/L BUN 16 (9-20) mg/dL Creatinine 0.56 L (0.66-1.25) mg/dL Glucose 162 H (74-99) mg/dL Calcium 8.4 (8.4-10.2) mg/dL Calcium panel 03/21/17 Range/Units 06:23 Calcium 8.4 (8.4-10.2) mg/dL Pituitary panel 03/21/17 Range/Units 06:23 Sodium 138 (137-145) mmol/L Potassium 3.1 L (3.5-5.1) mmol/L Chloride 105 (98-107) mmol/L Carbon Dioxide 24 (22-30) mmol/L BUN 16 (9-20) mg/dL Creatinine 0.56 L (0.66-1.25) mg/dL Glucose 162 H (74-99) mg/dL Calcium 8.4 (8.4-10.2) mg/dL Adrenal panel 03/21/17 Range/Units 06:23 Sodium 138 (137-145) mmol/L Potassium 3.1 L (3.5-5.1) mmol/L Chloride 105 (98-107) mmol/L Carbon Dioxide 24 (22-30) mmol/L BUN 16 (9-20) mg/dL Creatinine 0.56 L (0.66-1.25) mg/dL Glucose 162 H (74-99) mg/dL Calcium 8.4 (8.4-10.2) mg/dL Assessment and Plan (1) Diabetes mellitus, new onset Status: Acute Plan: New-onset diabetes. Check C-peptide level. Most likely adult onset type 1 diabetes. A1c 8.4% Currently patient's blood sugars are less than 200. He has been eating regular food yesterday. He is nothing by mouth today for the procedure Patient is having his teeth extracted today due to an infection. Patient is on insulin drip. May change insulin drip to subcutaneous insulin once patient starts eating. Recommend comprehensive diabetes education inpatient as well as outpatient Different insulin analogues were discussed with the patient. If patient cannot afford new insulin analogues than at the time of discharge he can start NPH insulin along with regular insulin before each meal thank you for letting me participate in the care of this patient
[2017-03-21 14:41] LABS: Glucose,Whole Blood 264 mg/dL (75-99)
[2017-03-21 15:00] LABS: Glucose,Whole Blood 247 mg/dL (75-99)
[2017-03-21] MEDS ORDERED: IV FLUID CONTINUATION 1,000 ML IV ONE (15:01)
[2017-03-21] MEDS ORDERED: ONDANSETRON 4 MG/2 ML VIAL IVP ONE (15:18)
[2017-03-21] MEDS ORDERED: LIDOCAINE 2%-EPI 1:100,000 20 ML VIAL SUBMUCOSAL ONE ×3 (15:18→16:07)
[2017-03-21] MEDS ORDERED: NEOSTIGMINE 1 MG/ML 10 ML VIAL ONE (15:24)
[2017-03-21] MEDS ORDERED: GLYCOPYRROLATE 0.2 MG/ML 2 ML VIAL ONE (15:24)
[2017-03-21] MEDS ORDERED: ROCURONIUM BROMIDE 10 MG/ML 10 ML VIAL IV ONE (15:24)
[2017-03-21] MEDS ORDERED: MIDAZOLAM 2 MG/2 ML VIAL ONE (15:24)
[2017-03-21] MEDS ORDERED: SUCCINYLCHOLINE CHLORIDE 100 MG/5 ML SYR IV ONE (15:24)
[2017-03-21] MEDS ORDERED: fentaNYL (PF) 50 MCG/ML 2 ML AMP ONE (15:24)
[2017-03-21] MEDS ORDERED: PROPOFOL 10 MG/ML 20 ML VIAL IV ONE (15:24)
[2017-03-21 16:33] LABS: Glucose,Whole Blood 234 mg/dL (75-99)
[2017-03-21] MEDS: HYDROmorphone 1 MG/ML 1 ML SYRINGE IVP ONE ×3 (16:36→16:54)
[2017-03-21 18:10] LABS: Glucose,Whole Blood 212 mg/dL (75-99)
--- NOTE | 2017-03-21 18:12 | OP ---
DATE OF SERVICE: 03/21/2017 SURGEON: KATIE ONTIVEROS DDS AUTOMOTIVE PAINTER: PREOPERATIVE DIAGNOSES: 1. Dental caries. 2. Abscess of the left buccal space. 3. Necrotic maxillary mandibular teeth. POSTOPERATIVE DIAGNOSES: 1. Dental caries. 2. Abscess of the left buccal space. 3. Necrotic maxillary mandibular teeth. OPERATION: 1. Incision and drainage of the right maxillary left vestibule and buccal space. 2. Surgical extraction of teeth number 5, 6, 7, 8, 9, 10, 11 and 12, 20, 21, 29 and 31. ANESTHESIA: General via oral endotracheal tube intubation. ESTIMATED BLOOD LOSS: 2 mL. DRAINS: None. SPECIMENS REMOVED: Aerobic and anaerobic cultures were taken from the left buccal space. COMPLICATIONS: None. FLUIDS: Crystalloid. OPERATIVE FINDINGS: INDICATIONS FOR PROCEDURE: The patient is a 46 -year-old male who is presented to the [facility] in [facility]. He was admitted and his blood sugar has been attempted to be adjusted to the normal range. During this admission, he complained of dental pain and facial swelling to the left cheek. The patient was examined and it was noted, the patient has multiple necrotic and carious teeth. An infection of the left buccal space was noted. The patient will undergo removal of the necrotic and hopeless teeth in addition to incision and drainage of the left buccal space. The risks, benefits and alternatives of the procedure were reviewed with the patient at length and all these questions were answered to his satisfaction. DESCRIPTION OF PROCEDURE: The patient was taken to the operating room, placed on the operating room table in the supine position. Next, the patient was induced via the IV route and the patient was intubated using a GlideScope. Once the endotracheal tube was in position and secured, a general plane of anesthesia was maintained throughout the operative course. Next, the surgeon approached the operative field and the patient was prepped and draped in the usual manner for this procedure. Next, a throat pack was placed notifying both nursing and anesthesia. Attention was then directed to the anterior maxilla where 3 mL of 2% Lidocaine with 1:100,000 parts of epinephrine was infiltrated into the vestibule out to the palate. Next, a 15 blade was utilized to develop and envelop flap and teeth numbers 5 thru 12 were removed utilizing an elevator and forceps technique. The wounds were irrigated thoroughly. Attention was then directed to the left maxillary vestibule where fluctuant swelling was incised and drained utilizing a 15 blade. Approximately 2 mL of purulent non-foul smelling discharge was noted. Aerobic and anaerobic cultures were taken. Attention was then directed to the lower left quadrant where teeth numbers 19 and 20 were extracted utilizing an elevator and forceps technique. Attention was then directed to an area of the lower right quadrant where tooth #29 and 31 were extracted with a similar technique. The wounds were irrigated thoroughly. Hemostasis was observed. The throat pack was removed notifying both nursing and anesthesia. The patient tolerated the procedure well without complications.
[2017-03-21] MEDS: ONDANSETRON 4 MG/2 ML VIAL IVP PRN (20:52)
[2017-03-21 21:16] LABS: Glucose,Whole Blood 140 mg/dL (75-99)
[2017-03-21] MEDS: MELATONIN 3 MG TABLET PO SCH (23:26)
[2017-03-21] MEDS: INSULIN REGULAR 100 UNIT in SODIUM CHLORIDE 0.9% 100 ML IV SCH (23:28)
[2017-03-21 23:30] LABS: Glucose,Whole Blood 132 mg/dL (75-99)
[2017-03-21] MEDS: LACTATED RINGERS 1,000 ML IV SCH (23:44)
[2017-03-22] MEDS: KETOROLAC 30 MG/ML 1 ML VIAL IVP PRN ×4 (01:05→17:12)
[2017-03-22 01:10] LABS: Glucose,Whole Blood 292 mg/dL (75-99)
[2017-03-22 02:35] LABS: Glucose,Whole Blood 373 mg/dL (75-99)
[2017-03-22] MEDS: HYDROcodone/APAP 5-325MG 1 EACH TAB PO PRN ×4 (02:45→20:33)
[2017-03-22 03:52] LABS: Glucose,Whole Blood 268 mg/dL (75-99)
[2017-03-22] MEDS ORDERED: Potassium Replacement Protocol 1 EACH MISC MISCELLANE PRN (03:55)
[2017-03-22] MEDS: POTASSIUM CHLORIDE ER 20 MEQ TAB.ER PO SCH ×2 (04:52→04:54)
[2017-03-22] MEDS: ACETAMINOPHEN TAB 325 MG TAB PO PRN (05:00)
[2017-03-22] MEDS: CLINDAMYCIN 600 MG in DEXTROSE 5% IN WATER 50 ML IVPB SCH ×6 (05:00→17:08)
[2017-03-22 05:27] LABS: Glucose,Whole Blood 156 mg/dL (75-99)
[2017-03-22] MEDS: PANTOPRAZOLE 40 MG TABLET PO SCH (06:33)
[2017-03-22] MEDS: SODIUM CHLORIDE 0.9% 1,000 ML IV SCH ×2 (06:33→17:30)
[2017-03-22] MEDS: CALCIUM CARBONATE LIQUID 500 MG/5 ML CUP PO SCH ×3 (06:33→17:07)
[2017-03-22] MEDS: ONDANSETRON 4 MG/2 ML VIAL IVP PRN ×2 (06:40→17:16)
[2017-03-22 06:53] LABS: CH 31.3; CHCM 36.2; HDW 2.82; HGB 11.9 gm/dL (13.0-17.5); MCH 30.4 pg (25.0-35.0); MCHC 35.1 g/dL (31.0-37.0); MCV 86.7 fL (80.0-100.0); Mean Platelet Volume 8.5; RBC 3.92 m/uL (4.30-5.90); RDW 12.8 % (11.5-15.5)
[2017-03-22 07:16] LABS: Anion Gap 8 mmol/L; Blood Urea Nitrogen 10 mg/dL (9-20); Calcium 8.3 mg/dL (8.4-10.2); Carbon Dioxide 28 mmol/L (22-30); Chloride 103 mmol/L (98-107); Glucose 133 mg/dL (74-99); Non-African American GFR(MDRD) >60 (>60 ml/min/1.73 sqM); Potassium 3.5 mmol/L (3.5-5.1); Sodium 139 mmol/L (137-145)
[2017-03-22 07:20] LABS: Glucose,Whole Blood 151 mg/dL (75-99)
[2017-03-22] MEDS: NICOTINE 21MG/24HR PATCH TRANSDERM SCH (08:33)
[2017-03-22] MEDS: ALPRAZolam 0.5 MG TAB PO PRN ×3 (08:33→20:33)
[2017-03-22] MEDS: ENOXAPARIN 40 MG/0.4 ML SYRINGE SQ SCH (08:34)
[2017-03-22] MEDS: ATORVASTATIN 40 MG TAB PO SCH (08:34)
[2017-03-22 09:20] LABS: Glucose,Whole Blood 257 mg/dL (75-99)
[2017-03-22 11:24] LABS: Glucose,Whole Blood 290 mg/dL (75-99)
[2017-03-22 13:11] LABS: Glucose,Whole Blood 294 mg/dL (75-99)
[2017-03-22] MEDS: INSULIN REGULAR 100 UNIT in SODIUM CHLORIDE 0.9% 100 ML IV SCH (14:43)
--- NOTE | 2017-03-22 16:34 | PN ---
DATE OF SERVICE: 03/21/2017 ATTENDING NOTE: This patient was seen and examined by me yesterday on 03/21/2017. I reviewed the note of my nurse practitioner Ms. Escoto and agree with the same and discussed with her. The patient remains on insulin drip. Waiting to go down to surgery for the absence of tooth. Several family members are present. Pain is present. On examination, tenderness over the left upper jaw over the abscess site. LUNGS: Clear. CARDIOVASCULAR: First and second sounds normal. INVESTIGATIONS: White count 6.7, hemoglobin 11.9. ASSESSMENT: 1. Diabetic ketoacidosis present on admission. 2. Multiple dental caries with periapical abscess of the upper jaw. Awaiting surgical intervention. PLAN: Care was discussed with the patient and . Smoking cessation reinforced. Continue with antibiotics. Follow.
[2017-03-22 16:43] LABS: Glucose,Whole Blood 264 mg/dL (75-99)
[2017-03-22 16:55] LABS: Glucose,Whole Blood 161 mg/dL (75-99)
[2017-03-22] MEDS: INSULIN NPH/REG INSULIN 70/30 300 UNIT/3 ML VIAL SQ SCH (17:07)
--- NOTE | 2017-03-22 18:25 | PN ---
DATE OF SERVICE: 03/22/2017 PRESENTING COMPLAINT: Weak and tired. INTERVAL HISTORY: This is a 46-year-old gentleman who presented to the emergency department on 03/18/2017, was found to have a blood glucose greater than 1000 and diagnosed with DKA. During this hospital stay he was found to have multiple tooth abscesses in the upper jaw. He is now status post tooth extraction. Today the patient looks more comfortable. No complaints of any additional pain. He has complaints of general discomfort, however, states he feels much better. Review of systems done for constitutional, cardiovascular, GI, pulmonary, with relevant findings as above. CURRENT MEDICATIONS: Lovenox, Lantus, Humalog, melatonin, nicotine patch, Protonix. PHYSICAL EXAMINATION: VITAL SIGNS: Temperature 96.3, pulse 83, respiratory rate 16, blood pressure 117/76, oxygen saturation 98% on room air GENERAL APPEARANCE: Patient is lying in bed. No complaints at this time. Looks comfortable. EYES: Pupils equal. Conjunctivae normal. NECK: JVD not raised. Mass not palpable. LUNGS: Diminished bases. Respiratory effort normal, unlabored. CARDIOVASCULAR: First and second sounds normal. No edema noted. ABDOMEN: Soft, nontender. Liver and spleen not palpable. PSYCHIATRIC: Alert and oriented x3. Mood and affect are normal. HEENT: Patient's left mandibular maxillary pain related to multiple tooth abscesses has been resolved. There still remains some tenderness to palpation. INVESTIGATIONS: White blood cell count 8.0, hemoglobin 11.9, platelet count 188, sodium 139, potassium 3.5, BUN 10, creatinine 0.59. Blood glucose 133. Patient is postop day one from incision and drainage of the right maxillary left vestibule and buccal space, surgical extraction of teeth numbers 5, 6, 7, 8, 9, 10, 11, and 12, 20, 21, 29, and 31. ASSESSMENT: 1. Diabetic ketoacidosis, present on admission. 2. Hyponatremia, pseudo, from elevated sugars, improved. 3. Acute on chronic gastritis from nonsteroidal anti-inflammatory drugs. 4. Multiple dental and periapical abscesses of the upper jaw, present on admission. 5. Chronic nicotine dependence. Patient is a current smoker. 6. Chronic insomnia, multifactorial. 7. Essential hypertension, uncontrolled on presentation. PLAN: Patient remains on insulin drip and will evaluate the ability to adjust and resume his subcu insulin injections so that we can prepare him for discharge. Patient remains on clindamycin. Will follow. Patient was seen and examined by nurse practitioner, Kayla Escoto, and all elements of the case were discussed with attending, Dr. Stephens.
[2017-03-22] MEDS: LACTATED RINGERS 1,000 ML IV SCH (20:31)
[2017-03-22] MEDS: MELATONIN 3 MG TABLET PO SCH (20:32)
[2017-03-22] MEDS: NAPROXEN 250 MG TAB PO SCH (20:35)
[2017-03-22 23:06] LABS: Glucose,Whole Blood 262 mg/dL (75-99)
[2017-03-23] MEDS: CLINDAMYCIN 600 MG in DEXTROSE 5% IN WATER 50 ML IVPB SCH ×6 (00:10→12:12)
[2017-03-23] MEDS: SODIUM CHLORIDE 0.9% 1,000 ML IV SCH ×2 (05:32→15:30)
[2017-03-23] MEDS: HYDROcodone/APAP 5-325MG 1 EACH TAB PO PRN ×2 (05:47→15:28)
[2017-03-23] MEDS: KETOROLAC 30 MG/ML 1 ML VIAL IVP PRN ×2 (05:48→12:12)
[2017-03-23] MEDS: ONDANSETRON 4 MG/2 ML VIAL IVP PRN ×2 (05:48→15:30)
[2017-03-23] MEDS: ALPRAZolam 0.5 MG TAB PO PRN ×3 (06:09→17:20)
[2017-03-23 06:48] LABS: CH 30.7; CHCM 34.3; HCT 34.2 % (39.0-53.0); HGB 11.6 gm/dL (13.0-17.5); MCH 30.5 pg (25.0-35.0); MCV 89.7 fL (80.0-100.0); Mean Platelet Volume 8.2; RBC 3.81 m/uL (4.30-5.90); RDW 13.1 % (11.5-15.5); WBC 7.8 k/uL (3.8-10.6)
[2017-03-23] MEDS: CALCIUM CARBONATE LIQUID 500 MG/5 ML CUP PO SCH ×3 (07:10→16:54)
[2017-03-23] MEDS: INSULIN NPH/REG INSULIN 70/30 300 UNIT/3 ML VIAL SQ SCH ×2 (07:10→16:54)
[2017-03-23] MEDS: PANTOPRAZOLE 40 MG TABLET PO SCH (07:10)
[2017-03-23 07:19] LABS: Anion Gap 7 mmol/L; Blood Urea Nitrogen 10 mg/dL (9-20); Calcium 8.7 mg/dL (8.4-10.2); Carbon Dioxide 27 mmol/L (22-30); Chloride 103 mmol/L (98-107); Glucose 280 mg/dL (74-99); Non-African American GFR(MDRD) >60 (>60 ml/min/1.73 sqM); Potassium 4.4 mmol/L (3.5-5.1); Sodium 137 mmol/L (137-145)
[2017-03-23 07:20] LABS: Glucose,Whole Blood 302 mg/dL (75-99)
[2017-03-23 09:21] VITALS: RESP 16
[2017-03-23] MEDS: NAPROXEN 250 MG TAB PO SCH (09:22)
[2017-03-23] MEDS: ATORVASTATIN 40 MG TAB PO SCH (09:22)
[2017-03-23] MEDS: NICOTINE 21MG/24HR PATCH TRANSDERM SCH (09:23)
[2017-03-23] MEDS: ENOXAPARIN 40 MG/0.4 ML SYRINGE SQ SCH (09:23)
[2017-03-23 10:26] LABS: Glucose,Whole Blood 347 mg/dL (75-99)
--- NOTE | 2017-03-23 12:17 | PN ---
DATE OF SERVICE: 03/22/2017 ATTENDING NOTE: This patient was seen and examined by me. I reviewed the note of my nurse practitioner, Ms. Escoto and discussed the same. Patient is status post DKA and also removal of abscessed tooth. The patient's facial asymmetry is much better. Patient on insulin drip. On exam, lungs are clear. CARDIOVASCULAR: First and second sounds normal. Respirations 16, blood pressure 120/73. Accu-Cheks are 150, 157, 290. White count is 8. ASSESSMENT: Diabetic ketoacidosis, present on admission now with uncontrolled diabetes, status post removal of multiple dental caries and periapical abscess ( ). PLAN: Care was discussed with the patient. Will start the patient on 70/30 20 units before supper and breakfast and 10 units before lunch. Insulin drip will also be discontinued this evening. Will use some naproxen for pain control. Follow.
[2017-03-23 12:25] LABS: Glucose,Whole Blood 276 mg/dL (75-99)
[2017-03-23] MEDS ORDERED: INSULIN NPH/REG INSULIN 70/30 300 UNIT/3 ML VIAL SQ SCH (12:30)
[2017-03-23 16:53] LABS: Glucose,Whole Blood 226 mg/dL (75-99)
[2017-03-23] MEDS ORDERED: INSULIN NPH/REG INSULIN 70/30 300 UNIT/3 ML VIAL SQ ONE (17:45)
[2017-03-23 17:54] VITALS: BP 120/69; PULSE 82; TEMP 97.6
[2017-03-23] MEDS ORDERED: SULFAMETHOX-TMP 800-160MG 1 EACH TAB PO SCH (18:00)
[2017-03-23] MEDS ORDERED: HYDROcodone/APAP 5-325MG 1 EACH TAB PO STA (19:07)
--- NOTE | 2017-03-23 23:29 | PN ---
DATE OF SERVICE: 03/23/2017 PRESENTING COMPLAINT: Weak and tired. INTERVAL HISTORY: This 46-year-old gentleman who presented to the emergency department and department on 03/18/2017 who was found to have blood glucose greater than 1000 and diagnosed with DKA. During his hospital stay he was found to have multiple tooth abscesses in the upper jaw. He is now status post tooth extraction. Today, the patient is alert, appears comfortable. No acute distress noted or voiced. He is able to inject insulin on his own. Patient is anxiously awaiting the opportunity to return home. Review of systems done for constitutional, cardiovascular, gastrointestinal, pulmonary; relevant findings as above. CURRENT MEDICATIONS: Lovenox, Lantus, Humalog, melatonin, nicotine patch, Protonix. PHYSICAL EXAMINATION: VITAL SIGNS: 97.3, temperature, pulse 85, respiratory rate 16, blood pressure 118/76, oxygen saturation 95% on room air. GENERAL APPEARANCE: Patient is lying in bed. No complaints at this time. Looks comfortable. EYES: Pupils equal. Conjunctivae normal. NECK: JVD not raised. Mass not palpable. LUNGS: Diminished bilateral bases. RESPIRATORY: Effort normal. Unlabored. CARDIOVASCULAR: First and second sounds normal. No edema noted. ABDOMEN: Soft, nontender. Liver and spleen not palpable. PSYCHIATRIC: Alert and oriented x3. Mood and affect are normal. HEENT: Patient's left mandibular and maxillary pain related to tooth abscesses have been resolved. Tenderness still remains to the left area, the left mandible and left maxillary area. INVESTIGATIONS: White blood cell count 7.8, hemoglobin 11.6, platelets 200, sodium 137, potassium 4.4, BUN 10, creatinine 0.60. Blood glucose has ranged between 131 on 03/19/2017 and up to 280 this morning. ASSESSMENT: 1. Diabetic q. acidosis, present on admission. 2. Hyponatremia pseudo from elevated sugars, improved. 3. Acute on chronic gastritis from nonsteroidal, anti-inflammatory drugs. 4. Multiple dental periapical abscesses in the upper jaw, present on admission. 5. Nicotine dependence, chronic, patient is a current smoker. 6. Chronic insomnia, multifactorial. 7. Essential hypertension uncontrolled on presentation PLAN: Patient remains on subcutaneous insulin; however, have not achieved good control yet. We will continue to make adjustments to patient's insulin and continue to prepare him for discharge. Patient remains on clindamycin. We will continue to follow. Patient has been seen and examined by nurse practitioner Kayla Escoto and all elements of the case were discussed with attending, Dr. Stephens. I performed a history and physical examination of this patient and discussed the same with the dictator. I agree with the dictator's note. Any additional findings/opinions, etc. will be noted.
[2017-03-24] MEDS ORDERED: INSULIN NPH/REG INSULIN 70/30 300 UNIT/3 ML VIAL SQ SCH (07:30)
--- NOTE | 2017-03-26 20:57 | DS ---
DATE OF ADMISSION: 03/18/2017 DATE OF DISCHARGE: 03/23/2017 FINAL DIAGNOSES: 1. Diabetic ketoacidosis, present on admission. 2. Hyponatremia, pseudo, from elevated sugars, improved, present on admission. 3. Acute on chronic gastritis, present on admission. 4. Multiple dental and ( ) abscess of the upper jaw, present on admission. 5. Chronic nicotine dependence. Patient is a current smoker. 6. Chronic insomnia, multifactorial. 7. Essential hypertension, uncontrolled upon presentation. HOSPITAL COURSE: This patient presented with diabetic ketoacidosis. He is a smoker. He was put on insulin drip. Patient also had an infected tooth with periapical abscesses. I&D of the right maxillary left vestibular and buccal space and surgical extraction of the teeth 5, 6, 7, 8, 9, 10, 11, 12, 20, 21, 29 and 31 were done under general anesthesia by Dr. Hart. More details in his operative note. The patient was counseled about his diabetes and smoking. PHYSICAL EXAMINATION: LUNGS: Fair air entry. CARDIOVASCULAR: First and second sounds normal. DISCHARGE MEDICATIONS: 1. Aleve 440 mg p.o. b.i.d. 2. Tylenol 650 mg q.6 p.r.n. 3. Tylenol No. 3 one tablet q.6 p.r.n. 4. Lipitor 40 mg a day. 5. Humulin 70/30 14 units before lunch and 28 units before breakfast and supper. 6. Zestril 5 mg p.o. daily. 7. Melatonin 3 mg at bedtime. 8. Nicotine patch 21. 9. Bactrim DS 1 tablet p.o. q.12; 14 tablets. 10. To rinse mouth with warm water and salt 4 times a day. 11. Follow up with Dr. Hart in one week. 12. Follow up with Dr. Ndiaye in 3 weeks. 13. BMP and CBC in 5 days. 14. Accu-Cheks to be followed.
== END 2017-03-23 20:09 | disposition home or self-care (01) | DRG 638 ==
LOC: EC 11:04 → 6SEL 12:42
PROVIDERS: ADMIT Hospitalist; ATTEND Hospitalist
PROC: 0C9W0Z1 Drainage of Upper Tooth, Open Approach, Multiple (ICD-10-PCS; principal; 2017-03-21 15:00)
PROC: 0CTX0Z1 Resection of Lower Tooth, Multiple, Open Approach (ICD-10-PCS; principal; 2017-03-21 15:00)
PROC: 0C9X0Z1 Drainage of Lower Tooth, Open Approach, Multiple (ICD-10-PCS; principal; 2017-03-21 15:00)
PROC: 0CTW0Z1 Resection of Upper Tooth, Multiple, Open Approach (ICD-10-PCS; principal; 2017-03-21 15:00)
DX: E13.10 Other specified diabetes mellitus with ketoacidosis without coma (principal); E87.1 Hypo-osmolality and hyponatremia; I10 Essential (primary) hypertension; D72.829 Elevated white blood cell count, unspecified; F17.210 Nicotine dependence, cigarettes, uncomplicated; F51.04 Psychophysiologic insomnia; Z87.820 Personal history of traumatic brain injury; G89.29 Other chronic pain; K02.9 Dental caries, unspecified; K04.7 Periapical abscess without sinus; K29.00 Acute gastritis without bleeding; K29.50 Unspecified chronic gastritis without bleeding; M47.9 Spondylosis, unspecified; Z83.3 Family history of diabetes mellitus
CPT/HCPCS: 36415; 70110; 70150; 80048; 80051; 80053; 80061; 81003; 82009; 82150; 82565; 82947; 83036; 83690; 84100; 84520; 85025; 85027; 87070; 87075; 87205; 96361; 96374; 96375; 99285

== ENCOUNTER → 2018-10-20 | Outpatient (CLI) | payer OTHER ==
--- NOTE | 2018-10-20 16:33 | MR ---
EXAMINATION TYPE: MR cervical spine wo con DATE OF EXAM: 10/20/2018 COMPARISON: Prior cervical MRI dated 09/16/2015 HISTORY: Neck pain, shoulder pain, stenosis TECHNIQUE: Multiplanar, multisequence images of the cervical spine were acquired. C2-C3: No evidence for degenerative disc disease. No disc bulge/herniation or protrusion. No Canal stenosis. Foramina are patent bilaterally. C3-C4: Left-sided foraminal encroachment is present due to lateral extension endplate disc complex on the left greater than right. No significant central stenosis.. C4-C5: Hypertrophic change results in right-sided foraminal encroachment. No significant central sten osis or evident disc herniation. C5-C6: There is loss of disc space. No significant central stenosis or foraminal encroachment. C6-C7: Loss of disc height signal is present, circumferential extension endplate disc complex results in bilateral foraminal encroachment, suspect a lateral disc herniation to the right at C6-7 although there is lateral extension endplate disc complexes bilaterally. Differential posterior extension cau ses anterior mass effect on the thecal sac, no significant central canal stenosis. C7-T1: No evidence for degenerative disc disease. No disc bulge/herniation or protrusion. No Canal stenosis. Foramina are patent bilaterally. Cervical segments are intact. There is normal alignment. Cervical spinal cord is of normal signal. Craniovertebral junction relationships are within normal limits. Patient shows anterior cervical fu enrico and discectomy change at C5-6 as on prior exam with loss of disc space and removal of hardware C 6, there is susceptibility artifact due to hardware at the interval anterior cervical fusion and disc ectomy at C4-5. IMPRESSION: Interval surgery, multilevel foraminal encroachment, degenerative disc disease as described.
--- NOTE | 2018-10-21 00:26 | MR ---
EXAMINATION TYPE: MR ankle LT wo con DATE OF EXAM: 10/20/2018 COMPARISON: None HISTORY: Left ankle swelling Standard multiplanar, multisequence MRI departmental protocol Multiplanar, multisequence images of the ankle were acquired. Diffusion weighted imaging was performe d. FINDINGS: Achilles tendon is intact. There is thickening of the posterior tibial tendon on the medial aspect of the ankle at the attachment on the navicular.. The collateral ligaments appear intact. Sub talar joint is intact. Ankle mortise is anatomic. I see no fracture. There is a small joint effusion. Extensor tendons appear intact. IMPRESSION: There is some thickening of the posterior tibial tendon at the attachment on the navicular which coul d relate to degenerative phenomenon and calcification. Small ankle joint effusion. No fracture seen.
== END | disposition home or self-care (01) ==
LOC: RADMRIMAIN 15:07
PROVIDERS: ATTEND Orthopaedic Surgery Orthopaedic Surgery of the Spine
DX: M50.30 Other cervical disc degeneration, unspecified cervical region (principal); M25.472 Effusion, left ankle; Z98.1 Arthrodesis status; Z98.890 Other specified postprocedural states
CPT/HCPCS: 72141

== ENCOUNTER → 2022-04-05 | Outpatient (CLI) | payer OTHER, MEDICARE ==
--- NOTE | 2022-04-06 01:14 | MR ---
EXAMINATION TYPE: MR lumbar spine wo con DATE OF EXAM: 04/05/2022 COMPARISON: None HISTORY: Low back pain that radiates down left leg for 4 years. Multiplanar multi echo imaging of the lumbar spine without contrast. Lumbar vertebrae have normal alignment. Disc spaces are fairly normal. No compression fracture. There is small posterior disc bulge at L5-S1. There is developmentally large spinal canal. No spinal steno sis. The neural foramina are fairly well maintained. There is no lumbar paraspinal mass. No compressi on fracture. No evidence of focal bone destruction. Visualized sacroiliac joints appear intact. IMPRESSION: Minimal posterior L5-S1 disc bulging. No spinal stenosis. No fracture.
== END | disposition home or self-care (01) ==
LOC: RADMRIMAIN 20:45
PROVIDERS: ATTEND Orthopaedic Surgery Orthopaedic Surgery of the Spine
DX: M51.17 Intervertebral disc disorders with radiculopathy, lumbosacral region (principal)
CPT/HCPCS: 72148